=== PATIENT | female | born 1960 | race African-American/Black ===

== ENCOUNTER 2022-10-15 12:42 | Outpatient (CLI) | payer MEDICARE, MEDICAID, SELFPAY ==
--- NOTE | ~2022-10-15 | MR_ITS ---
MRI of the brain Clinical History: Memory impairment Technique: Axial and sagittal T1-weighted images were acquired. These were followed by axial T2-weigh manda, diffusion weighted, gradient, and FLAIR images. Findings: There is no acute infarct, internal hemorrhage, or mass lesion. There is moderate white mat ter disease in the periventricular white matter. Ventricles and subarachnoid spaces are unremarkable. Orbits are unremarkable. There is minimal right frontal and bilateral ethmoid sinus disease. Remaining paranasal sinuses and mastoid air cells are cl ear. Major intracranial flow voids appear intact. Sagittal midline structures are intact. IMPRESSION: No acute infarct, intracranial hemorrhage, or mass lesion. Moderate probable chronic microvascular ischemic changes. Correlate for any possibility of demyelinat ing disease. Reviewed, dictated and finalized at [facility]. IMPRESSION: No acute infarct, intracranial hemorrhage, or mass lesion. Moderate probable chronic microvascular ischemic changes. Correlate for any pos sibility of demyelinating disease.
== END 2022-10-15 12:43 | disposition home or self-care (01) ==
PROVIDERS: PCP Internal Medicine Infectious Disease; Visit Provider Internal Medicine Infectious Disease
DX: R41.3 Other amnesia (principal); R93.422 Abnormal radiologic findings on diagnostic imaging of left kidney
CPT/HCPCS: 70551

== ENCOUNTER 2022-12-15 12:53 | Outpatient (CLI) | payer MEDICARE, MEDICAID, SELFPAY ==
--- NOTE | ~2022-12-15 | MR_ITS ---
EXAMINATION: MR renal wo/w con DATE: 12/15/2022 14:14 INDICATION: Abnormal findings on diagnostic imaging of urinary organs TECHNIQUE: Magnetic resonance imaging (MRI) of the abdomen was performed without and with 20 mL Multi [place] intravenous contrast. Sequences included coronal T2-weighted SS-FSE, coronal and axial FS 2D-F IESTA, axial STIR FSE, axial T2-weighted SS-FSE, axial T2-weighted FS SS-FSE, axial diffusion-weighte d SE, axial dual-echo T1-weighted FSPGR, and axial and coronal T1-weighted LAVA. Postcontrast axial T 1-weighted LAVA images were obtained in a time course. Postcontrast coronal T1-weighted LAVA images w ere obtained. COMPARISON: None. FINDINGS: Pulmonary nodule at the left posterior sulcus measuring 10 mm with thin peripheral rim of signal surr ounding central absent signal which suggests central calcification in the setting of old granulomatou s disease. Heart size is normal. No pericardial or pleural effusion. Multiple gallstones within the n ormal-appearing gallbladder. Liver is normal. No choledocholithiasis or intra or extrahepatic ductal or ductal dilation with common bile duct measuring up to 6 mm in maximal diameter. There are visible tiny pancreatic ductal side branches at the distal body and tail of the pancreas suggesting sequela o f chronic pancreatitis. Multiple tiny low signal intensity likely calcified granuloma in the otherwis e normal spleen. Bilateral adrenal glands are normal. 1.2 cm left renal cyst and 6 mm exophytic cyst at the medial right kidney. No bowel obstruction. Decompressed bladder, anteverted uterus and bilater al adnexa are unremarkable. No pathologically enlarged abdominal or pelvic lymphadenopathy. Moderate thoracic and severe lumbar spondylosis. Normal bone marrow signal throughout. IMPRESSION: 1. Bilateral nonenhancing renal cysts the largest on the left measuring 1.2 cm. Bilateral kidneys are otherwise unremarkable. 2. Cholelithiasis. 3. Multiple discernible tiny pancreatic ductal side branches at the tail the otherwise unremarkable p ancreas suggesting sequela of chronic pancreatitis. 4. 10 mm centrally low signal nodule at the posterior sulcus of the left lower lobe most likely an ol d calcified granuloma but differential includes centrally cavitary nodule and would recommend further evaluation with low-dose noncontrast chest CT. Reviewed, dictated and finalized at [facility]. IMPRESSION: 1. Bilateral nonenhancing renal cysts the largest on the left measuring 1.2 cm. Bilateral kidneys are otherwise unremarkable. 2. Cholelithiasis. 3. Multiple discernible tiny pancreatic ductal side branches at the tail the ot herwise unremarkable pancreas suggesting sequela of chronic pancreatitis. 4. 10 mm centrally low signal nodule at the posterior sulcus of the left lower lobe most likely an old calcified granuloma but differential includes centrally cavitary nodule and would recommend further evaluation with low-dose noncontra st chest CT.
== END 2022-12-15 12:54 | disposition home or self-care (01) ==
LOC: ANHIMG 12:59
PROVIDERS: PCP Internal Medicine Infectious Disease; Visit Provider Internal Medicine Infectious Disease
DX: R93.422 Abnormal radiologic findings on diagnostic imaging of left kidney (principal); K80.20 Calculus of gallbladder without cholecystitis without obstruction; N28.1 Cyst of kidney, acquired
CPT/HCPCS: 74183; A9577